=== PATIENT | male | born 1940 | race African-American/Black ===

== ENCOUNTER 2024-07-21 18:57 | Emergency (ER) | payer MEDICARE, MEDICAID ==
[~2024-07-21] VITALS: Ht 185.4 cm; Wt 114.0 kg
[2024-07-21 19:00] VITALS: TEMP 98.3; O2SAT 98
[2024-07-21] MEDS: SODIUM CHLORIDE 0.9% 1,000 ML IV ONE (19:58)
[2024-07-21 20:30] LABS: BASOPHILS % 0.7 % (0.0-2.0); HEMOGLOBIN. 11.7 g/dL (14.0-18.0); LYMPHOCYTES % 24.8 % (20.0-50.0); MEAN CORPUSCULAR HEMOGLOBIN 31.6 pg (28.0-32.0); MEAN CORPUSCULAR HGB CONC 34.5 g/dL (31.0-37.0); MEAN CORPUSCULAR VOLUME 91.4 fL (80.0-94.0); MEAN PLATELET VOLUME 7.8 fl (7.4-10.4); MONOCYTES % 7.5 % (2.0-8.0); PLATELET 168 x1000/uL (130-400); RED BLOOD CELL COUNT 3.72 mill/uL (4.7-6.1); RED CELL DISTRIBUTION WIDTH 14.8 % (11.6-14.6); WHITE BLOOD COUNT 3.9 x1000/uL (4.5-11.0)
[2024-07-21 20:39] LABS: CHLORIDE 106 mEq/L (98-107); SODIUM 140 mEq/L (136-145)
[2024-07-21 20:40] LABS: CARBON DIOXIDE 25 mEq/L (21-32)
[2024-07-21 20:45] LABS: CREATININE 1.1 mg/dL (0.6-1.3); GLUCOSE 103 mg/dL (70-105); UREA NITROGEN BLOOD 8 mg/dL (9-23)
[2024-07-21 20:46] LABS: PROTHROMBIN TIME 11.4 sec (9.6-11.0); TROPONIN I HIGH SENSITIVITY 13 ng/L (3.0-53)
[2024-07-21 20:47] LABS: CLARITY URINE CLEAR (CLEAR); COLOR URINE YELLOW (YELLOW); GLUCOSE URINE NEGATIVE (NEGATIVE); KETONES URINE NEGATIVE (NEGATIVE); LEUKOCYTE ESTERASE URINE 2+ (NEGATIVE); NITRITE URINE NEGATIVE (NEGATIVE); OCCULT BLOOD URINE NEGATIVE (NEGATIVE); PH URINE 6.5 (4.5-8.0); PROTEIN URINE NEGATIVE (NEGATIVE)
[2024-07-21 21:00] LABS: BACTERIA URINE 1+; RBC URINE NONE SEEN /hpf (0-2); SQUAMOUS EPITHELIAL CELL URINE FEW /lpf (RARE/1+)
[2024-07-21] MEDS ORDERED: CEPH500T MT (21:24)
[2024-07-21] MEDS: POTASSIUM CHLORIDE 20MEQ TABLET SR PO ONE (22:22)
[2024-07-21] MEDS: CEPHALEXIN 250MG CAPSULE PO ONE (22:22)
[2024-07-21 22:51] VITALS: BP 130/77; PULSE 80; RESP 16; O2SAT 98
== END 2024-07-21 22:54 | disposition home or self-care (01) ==
LOC: ER 18:57
DX: R55 Syncope and collapse (principal); N39.0 Urinary tract infection, site not specified; E87.6 Hypokalemia; E11.9 Type 2 diabetes mellitus without complications; I10 Essential (primary) hypertension
CPT/HCPCS: 99284; 96360; 80048; 81003; 83880; 85025; 85610; 84484; 36415; 93005; J7030